=== PATIENT | male | born 1965 | race Caucasian/White ===

== ENCOUNTER 2020-04-01 22:21 | Emergency (ER) | payer SELFPAY ==
[2020-04-01] MEDS ORDERED: NORMAL SALINE 1000 ML 1,000 ML IV ONE (22:54)
[2020-04-01] MEDS ORDERED: LORAZEPAM INJ 2 MG/1 ML VIAL IV ONE (22:55)
--- NOTE | 2020-04-01 23:06 | ER Document Report ---
Entered by STANFORD REID SCRIBE 04/01/20 [id number] Acting as scribe for:MANISHA RAMIRES DO ED General - General Information source: Patient <MANISHA RAMIRES - Last Filed: 04/02/20 03:35> <DOUGIE YUSUF - Last Filed: 04/02/20 05:28> <LUCY FLOWERS - Last Filed: 04/02/20 12:02> - General Chief Complaint: Alcohol Withdrawl Stated Complaint: POSSIBLE SEIZURE Time Seen by Provider: 04/01/20 22:40 Notes: This 54 year old male patient presents to the emergency department tonight due to intoxication. He reports that he had been sober for about 20 years but in November began drinking vodka heavily. Patient went to [facility] prior to arrival here for help with his alcoholism but he was sent here due to a [facility] of 0.44. He has had some dry heaves here and he complains that he "feels like he is going to have a seizure". (MANISHA RAMIRES) - Related Data Allergies/Adverse Reactions: No Known Allergies Allergy (Unverified 04/01/20 22:50) Past Medical History - General Information source: Patient - Social History Smoking Status: Current Every Day Smoker Frequency of alcohol use: Heavy Drug Abuse: Heroin Lives with: Family Family History: Reviewed & Not Pertinent - Medical History Medical History: Negative Surgical Hx: Negative <MANISHA RAMIRES - Last Filed: 04/02/20 03:35> Review of Systems - Review of Systems -: Yes ROS unobtainable due to patient's medical condition - intoxication <MANISHA RAMIRES - Last Filed: 04/02/20 03:35> Physical Exam <MANISHA RAMIRES - Last Filed: 04/02/20 03:35> - Vital signs Vitals: Resp Pulse Ox 18 96 04/01/20 22:39 04/01/20 22:39 - Notes Notes: Physical Exam: General: Alert, appears quite intoxicated, smells of EtOH. HEENT: Normocephalic. Atraumatic. PERRL. Extraocular movements intact. Oropharynx clear. Dry oral mucosa. Neck: Supple. Non-tender. Respiratory: No respiratory distress. Clear and equal breath sounds bilaterally. Cardiovascular: Regular rate and rhythm. Abdominal: Obese. Non-tender. No distension. Normal Bowel Sounds. Back: No gross abnormalities. Extremities: Moves all four extremities. Upper extremities: Normal inspection. Normal ROM. Lower extremities: Normal inspection. No edema. Normal ROM. Neurological: Unable to assess due to intoxication Psychological: Unable to assess due to intoxication Skin: Warm. Dry. Normal color. (MANISHA RAMIRES) Course - Laboratory Result Diagrams: 04/01/20 22:39 04/01/20 22:39 - EKG Interpretation by Me EKG shows normal: Sinus rhythm Rate: Normal Rhythm: NSR - NSR Nl Darragh Repol ab No st elevation or depression my interpretation., <MANISHA RAMIRES - Last Filed: 04/02/20 03:35> - Laboratory Result Diagrams: 04/01/20 22:39 04/01/20 22:39 <DOUGIE YUSUF - Last Filed: 04/02/20 05:28> - Laboratory Result Diagrams: 04/01/20 22:39 04/01/20 22:39 <LUCY FLOWERS - Last Filed: 04/02/20 12:02> - Re-evaluation Re-evalutation: 04/02/20 02:41 MDM 54 year old etohic is here form [place] where he attempted to check in for detox. Brethalizer there was over 400. He drinks in excess since 11/2019. No fever or covid symptoms. No known covid exposure. No SI or HI. He keeps asking for ativan saying he will seize. Nontoxic here. Easily redirected. (MANISHA RAMIRES) 04/02/20 05:28 Received patient in signout, pending repeat ethanol level. Ethanol has down trended to below 250. Patient is suitable to go to rehab at this time. (DOUGIE YUSUF) - Vital Signs Vital signs: Temp Pulse Resp BP Pulse Ox 99.2 F 86 20 148/78 H 95 04/02/20 10:42 04/02/20 10:42 04/02/20 10:42 04/02/20 10:42 04/02/20 10:42 - Laboratory Laboratory results interpreted by me: 04/01/20 04/01/20 22:39 22:39 RBC 4.23 L MCH 34.5 H RDW 22.4 H Plt Count 79 L Seg Neutrophils % 79.0 H Potassium 3.1 L Carbon Dioxide 20 L Anion Gap 23 H Glucose 113 H Direct Bilirubin 0.7 H AST 499 H ALT 161 H Alkaline Phosphatase 160 H Serum Alcohol 395 H* Discharge <MANISHA RAMIRES - Last Filed: 04/02/20 03:35> <DOUGIE YUSUF - Last Filed: 04/02/20 05:28> <LUCY FLOWERS - Last Filed: 04/02/20 12:02> - Discharge Clinical Impression: ETOHism Acute alcohol intoxication Qualifiers: Complication of substance-induced condition: uncomplicated Qualified Code(s): F10.920 - Alcohol use, unspecified with intoxication, uncomplicated Condition: Stable Disposition: HOME, SELF-CARE Instructions: Acute Alcohol Intoxication ([facility]), Chronic Alcoholism ([facility]) Additional Instructions: Acute Alcohol Intoxication Your evaluation revealed very high levels of alcohol. You can from dr inking a large amount of alcohol rapidly! Further, there's the risk of falls, traffic accidents, and fights. A high portion (about 50 percent) of the serious injuries seen in hospital emergency rooms are caused by alcohol. Alcohol overdosage is usually due to an underlying emotional or psychiatric problem. You may benefit from counselling. If "binge" drinking is an ongoing problem for you, or if you drink ANY AMOUNT of alcohol EVERY day, you most likely have a tendency to alcoholism. You should avoid alcohol totally. We can refer you for treatment. Persons with alcohol problems are often also prone to other addictions -- you should discuss any use of medications or drugs with the doctor. You should be watched at home for the next several hours by someone who has not been drinking. Get extra fluids for the next 24 hours. Call the doctor if there is repeated vomiting, increasing headache, decreasing level of alertness, or any other worsening. Hypokalemia You have an abnormally decreased level of serum potassium. Hypokalemia may cause weakness, fatigue, or heart rhythm abnormalities. Sometimes there are no symptoms at all. Usually, low serum potassium is due to taking diuretics (water pills). It can also be due to excessive vomiting or diarrhea. If no obvious cause is evident, further evaluation will be necessary. Treatment is usually oral potassium supplements. Take these exactly as prescribed. You may also want to select foods which are naturally high in potassium -- fruits (such as bananas, cantaloupe, grapes, oranges, prunes, tomatoes), fresh vegetables (potatoes, spinach, beans, peas), orange or tomato juice, tomato pasta sauce, milk, fish (halibut, tuna, salmon, anthony) A follow-up blood test is usually performed to assure that the potassium is returning to normal. Call the physician if you suffer severe weakness, muscle twitching or cramping, palpitations (pounding or irregular heartbeat), or any other new or a larming symptoms. Follow-up with [facility] for help with alcohol detoxification program. Do not start drinking alcohol again before you go over there today or they will likely send you back to the emergency room. RETURN TO THE EMERGENCY ROOM IF ANY NEW OR WORSENING SYMPTOMS. Referrals: RAULITO DILL JR, MD [Primary Care Provider] - Follow up as needed [facility] [Outside] - 04/02/20 I personally performed the services described in the documentation, reviewed and edited the documentation which was dictated to the scribe in my presence, and it accurately records my words and actions.
[2020-04-01 23:08] LABS: ABSOLUTE LYMPHOCYTES (AUTO) 0.9 10^3/uL (0.5-4.7); ABSOLUTE MONOCYTES (AUTO) 0.4 10^3/uL (0.1-1.4); ABSOLUTE NEUT (AUTO) 4.9 10^3/uL (1.7-8.2); BASOPHILS % (AUTO) 0.4 % (0-2); EOSINOPHILS % (AUTO) 0.1 % (0-6); HEMATOCRIT 40.8 % (37.9-51.0); HEMOGLOBIN 14.6 g/dL (13.5-17.0); LYMPHOCYTES % (AUTO) 14.4 % (13-45); MEAN CORPUSCULAR HEMOGLOBIN 34.5 pg (27.0-33.4); MEAN CORPUSCULAR HGB CONC 35.7 g/dL (32.0-36.0); MEAN CORPUSCULAR VOLUME 97 fl (80-97); MONOCYTES % (AUTO) 6.1 % (3-13); RED BLOOD COUNT 4.23 10^6/uL (4.35-5.55); RED CELL DISTRIBUTION WIDTH 22.4 % (11.5-14.0); TOTAL CELLS COUNTED % (AUTO) 100 %; WHITE BLOOD COUNT 6.3 10^3/uL (4.0-10.5)
[2020-04-01 23:10] LABS: INTERNATIONAL RATION (INR) 0.89; PROTHROMBIN TIME 12.2 SEC (11.4-15.4)
[2020-04-01 23:17] LABS: ALBUMIN 4.3 g/dL (3.5-5.0); ALKALINE PHOSPHATASE 160 U/L (38-126); ASPARTATE AMINO TRANSFERASE 499 U/L (17-59); BILIRUBIN,DIRECT 0.7 mg/dL (0.0-0.4); BILIRUBIN,TOTAL 1.2 mg/dL (0.2-1.3); BLOOD UREA NITROGEN 8 mg/dL (7-20); CALCIUM 8.8 mg/dL (8.4-10.2); GLUCOSE 113 mg/dL (75-110); POTASSIUM 3.1 mmol/L (3.6-5.0); TOTAL PROTEIN 6.8 g/dL (6.3-8.2)
[2020-04-01 23:21] LABS: CARBON DIOXIDE 20 mmol/L (22-30); CHLORIDE 99 mmol/L (98-107)
[2020-04-01 23:22] LABS: ANION GAP 23 (5-19)
[2020-04-01 23:29] LABS: ALCOHOL 395 mg/dL (NONE DETECTED)
[2020-04-01 23:31] LABS: PLATELET COUNT 79 10^3/uL (150-450)
[2020-04-02 00:49] LABS: URINE AMPHETAMINES SCREEN NEGATIVE; URINE BARBITURATES SCREEN NEGATIVE; URINE BENZODIAZEPINES SCREEN NEGATIVE; URINE COCAINE SCREEN NEGATIVE; URINE MARIJUANA (THC) SCREEN NEGATIVE; URINE METHADONE SCREEN NEGATIVE; URINE PHENCYCLIDINE SCREEN NEGATIVE
[2020-04-02] MEDS ORDERED: LORAZEPAM INJ 2 MG/1 ML VIAL IV ONE (01:41)
[2020-04-02] MEDS ORDERED: POTASSIUM CHLORIDE 20 MEQ PACKET PO ONE ×2 (06:48→11:56)
--- NOTE | 2020-04-02 06:51 | ER Document Report ---
Doctor's Note Notes: 04/02/20 06:50 This 54-year-old intoxicated patient was supposed to be getting discharged to [facility] this morning. I was just informed by the nurse that they are refusing to set the patient because his potassium was 3.1 about 1030 last night. At this time his alcohol level is probably about 235 based on the alcohol level done last night and the time since it was drawn. He will be given a 40 mEq dose of oral potassium at this time, will be kept until his alcohol level begins to approach sober, and then discharge the patient. He will be encouraged to increase potassium in his diet and to follow-up with [facility] at a later time today. 04/02/20 11:58 Patient's alcohol level is probably approaching 100 at this time. He states he feels terrible but he is not exhibiting any overt withdrawal symptoms at this time. He will be given a dose of Ativan and clonidine, and additional potassium and discharged home with encouragement to go to [facility] with out drinking anything between now and the time he does go over to [facility] to try to get into the detox program. The patient understands and is willing to try this route to get into the [facility] detox program.
[2020-04-02] MEDS ORDERED: CLONIDINE HCL 0.1 MG TABLET PO ONE (11:56)
[2020-04-02] MEDS ORDERED: LORAZEPAM 1 MG TABLET PO ONE (11:56)
[2020-04-02 12:39] VITALS: BP 151/74
--- NOTE | 2020-04-02 15:16 | EKG REPORT ---
SEVERITY:- ABNORMAL ECG - SINUS RHYTHM LEFT VENTRICULAR HYPERTROPHY : Confirmed by: Chloe Avila MD 02-Apr-2020 15:15:19
== END 2020-04-02 12:36 | disposition home or self-care (01) ==
LOC: ER 22:21
DX: F10.129 Alcohol abuse with intoxication, unspecified (principal); E87.6 Hypokalemia; F17.200 Nicotine dependence, unspecified, uncomplicated; Y90.9 Presence of alcohol in blood, level not specified
CPT/HCPCS: 93005; 96376; 99284; 96361; 96374; 36415; 80307 ×2; 83735; 85025; 85610; 80053; 93010; J2060 ×2; J7030; J3490